=== PATIENT | male | born 1985 | race Caucasian/White ===

== ENCOUNTER 2021-11-21 11:18 | Emergency (ER) | payer SELFPAY ==
[~2021-11-21] VITALS: Ht 185.4 cm; Wt 84.1 kg
[2021-11-21 11:40] VITALS: BP 119/82
--- NOTE | 2021-11-21 12:55 | PHYS DOC ---
Past Medical History Past Medical History: No Pertinent History Past Surgical History: No Surgical History Smoking Status: Never Smoker General Adult EDM: Chief Complaint: KNEE INJURY HPI: HPI: Patient is a 36-year-old male who presents today with right knee pain. Patient states that he has had pain in his right knee for quite some time in the past, h e did see a physician on an outpatient basis for the knee pain, he was instructed to get an MRI but never had that done due to the lack of insurance. He states that yesterday while at work he said he had a box fall on his knee, and he started having knee pain again. Patient states he is able to ambulate but he said that it hurts to ambulate. Review of Systems: Review of Systems: Constitutional: Denies fever or chills. [] Eyes: Denies change in visual acuity. [] HENT: Denies nasal congestion or sore throat. [] Respiratory: Denies cough or shortness of breath. [] Cardiovascular: Denies chest pain or edema. [] GI: Denies abdominal pain, nausea, vomiting, bloody stools or diarrhea. [] : Denies dysuria. [] Musculoskeletal: Right knee pain Integument: Denies rash. [] Neurologic: Denies headache, focal weakness or sensory changes. [] Endocrine: Denies polyuria or polydipsia. [] Lymphatic: Denies swollen glands. [] Psychiatric: Denies depression or anxiety. [] Heart Score: C/O Chest Pain: No Risk Factors: Risk Factors: DM, Current or recent (<one month) smoker, HTN, HLP, family history of CAD, obesity. Risk Scores: Score 0 - 3: 2.5% MACE over next 6 weeks - Discharge Home Score 4 - 6: 20.3% MACE over next 6 weeks - Admit for Clinical Observation Score 7 - 10: 72.7% MACE over next 6 weeks - Early Invasive Strategies Current Medications: Current Medications Medications (Trade) Dose Ordered Sig/Junaa Start Time Stop Time Status Last Admin Dose Admin Acetaminophen/ Hydrocodone Bitart (Lortab 5/325) 1 tab 1X ONCE 11/21/21 12:45 11/21/21 12:46 UNV Ibuprofen (Motrin) 600 mg 1X ONCE 11/21/21 12:45 11/21/21 12:46 UNV Allergies: Allergies: Allergies Coded Allergies Type Severity Reaction Last Updated Verified No Known Drug Allergies 11/21/21 No Physical Exam: PE: Constitutional: Well developed, well nourished, no acute distress, non-toxic appearance. [] HENT: Normocephalic, atraumatic, bilateral external ears normal, oropharynx moist, no oral exudates, nose normal. [] Eyes: PERRLA, EOMI, conjunctiva normal, no discharge. [] Neck: Normal range of motion, no tenderness, supple, no stridor. [] Cardiovascular:Heart rate regular rhythm, no murmur [] Lungs & Thorax: Bilateral breath sounds clear to auscultation [] Abdomen: Bowel sounds normal, soft, no tenderness, no masses, no pulsatile masses. [] Skin: Warm, dry, no erythema, no rash. [] Back: No tenderness, no CVA tenderness. [] Extremities: No tenderness, no cyanosis, no clubbing, ROM intact, no edema. [] Neurologic: Alert and oriented X 3, normal motor function, normal sensory function, no focal deficits noted. [] Psychologic: Affect normal, judgement normal, mood normal. [] Current Patient Data: Vital Signs: Vital Signs Date Time Temp Pulse Resp B/P (MAP) Pulse Ox O2 Delivery O2 Flow Rate FiO2 11/21/21 11:40 97.9 72 18 119/82 (94) 98 Room Air 97.9 EKG: EKG: [] Radiology/Procedures: Radiology/Procedures: [REASON: KNEE PAIN PROCEDURE: KNEE RIGHT 4V EXAM: XR KNEE 4 VIEWS WITH PATELLA_RT 11/21/2021 12:46 PM CLINICAL INDICATION: Knee pain COMPARISON: None TECHNIQUE: AP, oblique, lateral, and sunrise views of the right knee FINDINGS: No acute fracture. Alignment is normal. Joint spaces are maintained. No joint effusion or soft tissue abnormality. IMPRESSION: No acute osseous abnormality. Electronically signed by: Alison Brasher MD (11/21/2021 1:11 PM) [id number] ] Course & Med Decision Making: Course & Med Decision Making Pertinent Labs and Imaging studies reviewed. (See chart for details) 1335 I reviewed radiological results with patient did inform there was no acute findings noted on the x-rays, I did inform him that he possibly would have a ligamental or cartilage injury that would not show up on x-rays. Patient's was offered a knee immobilizer and crutches, patient states that he has both at home, I did inform him to weight-bear as tolerated to his right leg and to wear knee immobilizer until he is followed up with orthopedic services, patient will be given an Calixto wrap while here in the emergency department, patient is instructed to take Tylenol and/or ibuprofen as needed for pain and to weight- bear as tolerated to help with pain control. Patient verbalized understanding of this and agreeable with the plan of care. 1400 RN went back into the room to place Calixto wrap and to give discharge instructions to the patient, patient was not in his room and was nowhere in the waiting room as well so patient left before instructions can be given or Calixto wrap applied. Ammon Disclaimer: Ammon Disclaimer: This electronic medical record was generated, in whole or in part, using a voice recognition dictation system. Departure Departure Impression: Primary Impression: Knee pain Qualified Codes: M25.561 - Pain in right knee Disposition: 07 LEFT AWOL/ELOPED Condition: STABLE Referrals: NO PCP (PCP) GONZALEZ KOVACS Jr. DO Patient Instructions: Crutch Use, Knee Immobilization, Knee Pain Additional Instructions: Wear right knee immobilizer that you have at home, and use crutches that you have at home to weight-bear on right leg as needed to help with pain control Ice 20 minutes on 3-4 times daily as needed for pain [id number] Tylenol and/or ibuprofen as needed for pain Follow-up with your primary care physician, one of the clinics listed below, or Dr. Kovacs who is the orthopedic doctor on-call for further evaluation and management of your right knee pain, you may need an MRI for further evaluation of the ligaments and cartilage in your knee [facility] [address] [place] [address] [facility] [address] [place] [address] [facility] [address] [facility] [place] [address] [facility] [address] [address] [facility] [address] [place] [address] [facility] [address] [place] [address] [facility] [place] [address] [place] [address] [facility] [address] [place] [address] [facility] [address] [place] [address] [facility] Department [address] [place] [address] CARIDAD BARRAZA APRN Nov 21, 2021 12:55
[2021-11-21] MEDS ORDERED: HYDROcodone/APAP 5/325MG 1 TAB TABLET PO ONE (13:00)
[2021-11-21] MEDS ORDERED: IBUPROFEN 200 MG TABLET. PO ONE (13:00)
--- NOTE | 2021-11-21 13:14 | RAD ---
EXAM: XR KNEE 4 VIEWS WITH PATELLA_RT 11/21/2021 12:46 PM CLINICAL INDICATION: Knee pain COMPARISON: None TECHNIQUE: AP, oblique, lateral, and sunrise views of the right knee FINDINGS: No acute fracture. Alignment is normal. Joint spaces are maintained. No joint effusion or soft tissue abnormality. IMPRESSION: No acute osseous abnormality. Electronically signed by: Alison Brasher MD (11/21/2021 1:11 PM) [id number]
== END 2021-11-21 13:47 | disposition left against medical advice (07) ==
LOC: ER 11:18
DX: M25.561 Pain in right knee (principal); G89.11 Acute pain due to trauma; W20.8XXA Other cause of strike by thrown, projected or falling object, initial encounter; Y93.89 Activity, other specified; Y92.89 Other specified places as the place of occurrence of the external cause; Y99.8 Other external cause status
CPT/HCPCS: 73564; 99283